=== PATIENT | female | born 1970 | race Caucasian/White ===

== ENCOUNTER 2020-01-03 13:12 | Emergency (ER) | payer BC, SELFPAY ==
[2020-01-03 13:13] VITALS: BP 148/84; PULSE 86; RESP 17; TEMP 37.1; O2SAT 96; BMI 36.3
--- NOTE | 2020-01-03 14:18 | CT_ITS ---
STUDY: CT BRAIN WITHOUT CONTRAST REASON FOR EXAM: Female, 49 years old. FALL ONE WEEK AGO RADIATION DOSAGE (If Supplied By Facility): CTDIvol = ( 44.99 ) mGy, DLP = ( 745.49 ) mGycm TECHNIQUE: Transaxial CT imaging of the brain was performed without administration of intravenous contrast material. Individualized dose optimization techniques were used for this CT. COMPARISON: No relevant priors. FINDINGS: Small scalp hematoma overlying the superior aspect of the posterior right parietal occipital bone. Normal calvarium. Normal size ventricles and extra-axial spaces for the patient''s age. Normal white matter tracts of the cerebral hemispheres. Normal basal ganglia and thalami. Normal brainstem. Normal cerebellum. There is no intracranial hemorrhage. There are no findings of an acute ischemic infarction. Normal visualized paranasal sinuses. CT/Brain/Head without Contrast IMPRESSION: Small scalp hematoma overlying the superior aspect of the right parietal occipital bone posteriorly. Electronically Signed: Smooth Michelle, at 15:00 EST , Service support ,
--- NOTE | 2020-01-03 15:16 | ED.VISSUMM ---
- ER Visit Summary Date of Service: 01/03/20 Chief Complaint: Fall History of Present Illness: The patient is a 49 F who presents with a fall that occurred 1 week ago. Patient states she slipped and fell. Patient states she landed on her right side. Patient complains of pain in her right hip and thigh as well as the right side of her head. Patient states she is still having a headache. Patient states she also noticed a hard lump on the side of her right thigh. Patient has been ambulatory since the fall. Patient describes her pain as dull but sharp at times in her head. Patient describes her pain in her hip as aching but sharp with certain movements. Patient does admit to some tingling on the right side of her scalp, right cheek, and right ear. Patient denies any fevers or chills. Patient admits to some nausea and vomiting. Physical Examination: Vital signs are stable. Patient is afebrile. Patient is in no acute distress. There is tenderness and a small hematoma over the right posterior scalp. There is no bony crepitance or step-off. Pupils are equal, round, and reactive to light bilaterally. Extraocular muscles are intact. Neck is supple. Trachea is midline. There is no JVD. Heart was regular rate and rhythm. Lungs are clear and equal bilaterally. Abdomen is soft and nontender. Cranial nerves II through XII are intact. Strength is 5/5 bilateral knee upper and lower extremities. There are no focal motor or sensory deficits noted. There is some tenderness, edema, and ecchymosis over the lateral aspect of the right proximal thigh. There is a hematoma noted there. There is no bony crepitance or step-off. There is good range of motion of the right lower extremity. Test Results: CT scan of the brain was obtained. There is no acute intracranial abnormality. This was interpreted by the radiologist and reviewed by myself. Emergency Department Course and Treatment: Patient was advised of her findings. Patient was advised that her hematoma may continue to resolve with further discoloration of her skin. Patient was given head injury instructions. Patient was instructed to follow-up with her primary care physician in 5 to 7 days. Patient understood and was agreeable with the plan. All questions were answered. Disposition: Discharge home Impression: 1. Closed head injury 2. Right thigh contusion This note was generated with Dragon dictation software. It may contain incorrect words, spelling, and punctuation that were not noted in review of the chart prior to signing ED Disposition - Plan for ED Patient: Disposition: Home or Assisted Living Diagnosis: Closed head injury, Contusion of right thigh, initial encounter Instructions: HEAD INJURY, No Wake-Up (Adult), CONTUSION, Lower Extremity Referrals: Michelle Mejia, PRO[employer] MANAGEMENT PROFESSOR-C [Primary Care Provider] - 5-7 Days
== END 2020-01-03 15:33 | disposition home or self-care (01) ==
PROVIDERS: Emergency Provider Emergency Medicine; PCP Nurse Practitioner Family
DX: S00.03XA Contusion of scalp, initial encounter (principal); S70.11XA Contusion of right thigh, initial encounter; W01.0XXA Fall on same level from slipping, tripping and stumbling without subsequent striking against object, initial encounter; Y93.9 Activity, unspecified; Y92.9 Unspecified place or not applicable; I10 Essential (primary) hypertension; E03.9 Hypothyroidism, unspecified
CPT/HCPCS: 70450; 99282

== ENCOUNTER → 2020-05-31 15:29 | Outpatient (CLI) | payer BC, SELFPAY ==
--- NOTE | 2020-05-31 15:31 | BI_ITS ---
MAMMOGRAPHY - BILATERAL SCREENING REASON FOR EXAM: Female, 49 years old. Routine annual screening examination. PERTINENT HISTORY: Non-contributory. TECHNIQUE: Digital bilateral breast marianne (3D mammographic acquisition) in the CC and MLO projections. 2-D mediolateral oblique (MLO) and craniocaudad (CC) views of both breasts were obtained. CAD: Full Field Digital Mammography with Computer Added Detection was performed. COMPARISON: Comparison is made with prior abdomen examination dated 05/03/2009. FINDINGS: Breast Composition: The breasts are heterogeneously dense, which may obscure small masses. There are no dominant masses or suspicious calcifications. Stable small benign appearing bilateral axillary lymph nodes. No other significant abnormalities are identified. There has been no significant change since the prior study. BI/SCREEN MAMM (CAD) W/MARIANNE BILAT IMPRESSION: Stable bilateral screening mammogram. Yearly follow-up mammogram recommended. (A) ASSESSMENT CATEGORY: BIRADS Category 2: Benign. A letter regarding these results will be sent to the patient by the facility within 30 days. Approximately 10% of breast cancers are not detected by mammography. A normal mammogram should not delay biopsy of a clinically suspicious abnormality. [id number] Electronically Signed: Smooth Michelle, at 8:18 EDT , Service support ,
== END ==
PROVIDERS: PCP Nurse Practitioner Family
DX: Z12.31 Encounter for screening mammogram for malignant neoplasm of breast (principal)
CPT/HCPCS: 77063; 77067